=== PATIENT | female | born 1940 | race Caucasian/White ===

== ENCOUNTER 2018-07-30 01:40 | Inpatient (IN) | payer SELFPAY ==
[~2018-07-30] VITALS: Ht 170.2 cm; Wt 87.1 kg
[2018-07-30] MEDS ORDERED: METOCLOPRAMIDE HCL 10MG/2ML VIAL IV ONE (02:15)
[2018-07-30 02:34] LABS: BASOPHILS % 0.5 % (0.0-2.0); EOSINOPHILS % 0.6 % (0.0-5.0); HEMATOCRIT. 45.9 % (36.0-48.0); HEMOGLOBIN. 15.4 g/dL (12.0-16.0); LYMPHOCYTES % 19.6 % (20.0-50.0); MEAN CORPUSCULAR VOLUME 83.3 fL (81.0-99.0); MEAN PLATELET VOLUME 7.7 fl (7.4-10.4); MONOCYTES % 7.3 % (2.0-8.0); PLATELET 268 x1000/uL (130-400); RED BLOOD CELL COUNT 5.51 mill/uL (4.2-5.4); RED CELL DISTRIBUTION WIDTH 13.7 % (11.6-14.6)
[2018-07-30 02:42] LABS: CHLORIDE 101 mEq/L (98-107)
[2018-07-30] MEDS ORDERED: GUAIFENESIN 200MG/10ML SUGAR FREE UDC PO PRN (08:30)
[2018-07-30] MEDS ORDERED: CLONIDINE 0.1MG TABLET PO PRN (08:30)
[2018-07-30] MEDS ORDERED: DOCUSATE SODIUM 100MG CAPSULE PO PRN (08:30)
[2018-07-30] MEDS ORDERED: ACETAMINOPHEN 325MG TABLET PO PRN (08:30)
[2018-07-30] MEDS ORDERED: IPRATROPIUM/ALBUTEROL 0.5-3(2.5)MG/3ML NEB INH PRN (08:30)
[2018-07-30] MEDS ORDERED: ONDANSETRON HCL 4MG/2ML INJ IV PRN (08:30)
[2018-07-30] MEDS ORDERED: LORAZEPAM 2MG/ML CPJ IV PRN (08:30)
[2018-07-30] MEDS ORDERED: MAGNESIUM/ALUMINUM HYDROXIDE/SIMETHICONE 30ML UDC PO PRN (08:30)
[2018-07-30] MEDS ORDERED: LEVETIRACETAM 500MG PREMIX 100 ML IV NR (09:45)
[2018-07-30] MEDS ORDERED: ZINC SULFATE 220 MG ( 50 ) CAPSULE PO NR (10:00)
[2018-07-30] MEDS: FAMOTIDINE 20MG TABLET PO SCH ×2 (10:00→21:50)
[2018-07-30] MEDS ORDERED: SUCRALFATE 1 G/10 ML UDC PO NR (10:00)
[2018-07-30] MEDS ORDERED: ASCORBIC ACID 500 MG TABLET PO SCH (10:00)
[2018-07-30] MEDS: SODIUM CHLORIDE 0.9% 1,000 ML IV SCH ×2 (10:14→21:51)
[2018-07-30] MEDS: ENOXAPARIN 40MG/0.4ML SYR SUBCUT SCH (10:15)
[2018-07-30 17:00] VITALS: BP 148/52
[2018-07-30] MEDS ORDERED: NITROGLYCERIN 0.4MG TABLET SL SL PRN (18:00)
[2018-07-30] MEDS ORDERED: TRAMADOL 50MG TABLET PO PRN (18:00)
[2018-07-30] MEDS ORDERED: ERGO400C MT (18:13)
[2018-07-30] MEDS ORDERED: TURM1POW2 MC (18:13)
[2018-07-30 20:00] VITALS: BP 128/71
[2018-07-30] MEDS ORDERED: LEVETIRACETAM 500MG PREMIX 100 ML IV SCH (21:00)
[2018-07-30] MEDS ORDERED: ZOLPIDEM TARTRATE 5MG TABLET PO PRN (21:00)
[2018-07-30] MEDS ORDERED: NA PHOS,M-B/NA PHOS,DI-BA ENEMA 118ML PR PRN (21:00)
[2018-07-30] MEDS: SUCRALFATE 1 G/10 ML UDC PO SCH (21:47)
[2018-07-30] MEDS: ASCORBIC ACID 500 MG TABLET PO SCH (21:50)
[2018-07-30] MEDS: LEVETIRACETAM 500MG in SODIUM CHLORIDE 0.9% 100ML IV SCH (22:58)
[2018-07-31] VITALS: BP 125/53
[2018-07-31] LABS: CREATINE KINASE MB FRACTION 2.4 ng/mL (0.5-3.6)
[2018-07-31 04:00] VITALS: BP 135/61
[2018-07-31] MEDS: SUCRALFATE 1 G/10 ML UDC PO SCH ×2 (06:23→11:45)
[2018-07-31] MEDS: SODIUM CHLORIDE 0.9% 1,000 ML IV SCH (06:25)
[2018-07-31 07:55] VITALS: BP 141/72
[2018-07-31] MEDS ORDERED: ZINC SULFATE 220 MG ( 50 ) CAPSULE PO SCH (09:00)
[2018-07-31] MEDS: ASCORBIC ACID 500 MG TABLET PO SCH (09:26)
[2018-07-31] MEDS: FAMOTIDINE 20MG TABLET PO SCH (09:27)
[2018-07-31] MEDS: LEVETIRACETAM 500MG in SODIUM CHLORIDE 0.9% 100ML IV SCH (09:27)
[2018-07-31] MEDS: ENOXAPARIN 40MG/0.4ML SYR SUBCUT SCH (09:27)
[2018-07-31] MEDS ORDERED: LEVETIRACETAM 500MG TABLET PO SCH (11:30)
[2018-07-31 12:07] VITALS: BP 139/65
[2018-07-31 15:23] VITALS: BP 139/65
[2018-07-31 15:46] VITALS: BP_SYST 137; BP_DIAS 56; BP_DIAS 57
== END 2018-07-31 15:00 | disposition home or self-care (01) | DRG 52 ==
LOC: ER 01:40 → 5WST 04:48 → EDBEDREQ 04:49 → SUPCPDRO 08:28 → ENRESERV 15:40
PROVIDERS: ADMIT Internal Medicine; ATTEND Internal Medicine
DX: G92 Toxic encephalopathy (principal); R56.9 Unspecified convulsions; G90.8 Other disorders of autonomic nervous system; Z85.841 Personal history of malignant neoplasm of brain
CPT/HCPCS: 36415; 70551; 71045; 80061; 82550; 82553; 82962; 83036; 83880; 84484; 93005; 93306; 93970; 96374; 99285; J1650; J1953; J2765; J7050